=== PATIENT | male | born 1970 | race Hispanic/Latino ===

== ENCOUNTER 2019-05-10 18:32 | Emergency (ER) | END 2019-05-10 19:40 | disposition home or self-care (01) | LOC: ERS 18:32 | DX: J06.9 Acute upper respiratory infection, unspecified (principal); I10 Essential (primary) hypertension; E78.00 Pure hypercholesterolemia, unspecified; F17.210 Nicotine dependence, cigarettes, uncomplicated; Z79.899 Other long term (current) drug therapy | CPT/HCPCS: 87804; 99283 ==

== ENCOUNTER 2019-05-27 09:59 | Emergency (ER) | payer SELFPAY ==
[2019-05-27] MEDS ORDERED: Acetaminophen 500 MG TAB ONE (10:33)
[2019-05-27] MEDS ORDERED: Ibuprofen 800 MG TAB ONE (10:33)
--- NOTE | 2019-05-27 11:42 | RAD ---
EXAM: Chest 2 views: HISTORY: Flulike symptoms with cough COMPARISON: None. FINDINGS: There is a normal-sized cardiomediastinal silhouette. There is no evidence of consolidation, mass, or pleural effusion. The bones are unremarkable. IMPRESSION: No evidence of acute cardiopulmonary disease
[2019-05-27] MEDS ORDERED: Dexamethasone 4 mg/ml Vial ONE (12:11)
== END 2019-05-27 12:15 | disposition home or self-care (01) ==
LOC: ERS 09:59
DX: J20.9 Acute bronchitis, unspecified (principal); H66.92 Otitis media, unspecified, left ear; I10 Essential (primary) hypertension; E78.00 Pure hypercholesterolemia, unspecified; F17.210 Nicotine dependence, cigarettes, uncomplicated; Z79.899 Other long term (current) drug therapy
CPT/HCPCS: 71046; 87804; J1100

== ENCOUNTER 2020-05-03 18:19 | Emergency (ER) | payer OTHER, SELFPAY ==
[2020-05-03] MEDS ORDERED: Acetaminophen 500 MG TAB ONE (19:35)
[2020-05-03] MEDS ORDERED: Ibuprofen 200 MG TAB ONE (19:35)
[2020-05-03] MEDS ORDERED: Dexamethasone 10 MG/ML VIAL ONE (19:36)
--- NOTE | 2020-05-03 20:04 | RAD ---
EXAM: CHEST ONE VIEW: 05/03/20 HISTORY: Swelling to throat on right side with radiation to right ear. COMPARISON: 05/27/19. FINDINGS: The heart size is normal. The lungs are clear. No confluent pneumonia, overt edema, or pleural effusi on. IMPRESSION: No significant acute intrathoracic disease. POS: [facility]
[2020-05-04 02:33] LABS: SARS-CoV-2 MS2 Positive; SARS-CoV-2 N Gene Negative; SARS-CoV-2 S Gene Negative; SARS-CoV-2 by NAA Not Detected (NotDetected); SARS-CoV-2 orf1ab Negative
== END 2020-05-03 21:40 | disposition home or self-care (01) ==
LOC: ERS 18:19
DX: J02.9 Acute pharyngitis, unspecified (principal); Z20.828 Contact with and (suspected) exposure to other viral communicable diseases; I10 Essential (primary) hypertension; E78.00 Pure hypercholesterolemia, unspecified; F17.210 Nicotine dependence, cigarettes, uncomplicated
CPT/HCPCS: 71045; 87081; 87430; 87635; 93005; 96372; J1100; U0003

== ENCOUNTER 2020-08-14 08:09 | Emergency (ER) | payer OTHER, SELFPAY | END 2020-08-14 08:57 | disposition home or self-care (01) | LOC: ERS 08:09 | DX: J36 Peritonsillar abscess (principal) | CPT/HCPCS: 99282 ==

== ENCOUNTER 2023-10-19 11:11 | Emergency (ER) | payer SELFPAY, OTHER ==
[2023-10-19] MEDS ORDERED: Dexamethasone 10 MG/ML VIAL ONE (13:13)
[2023-10-19] MEDS ORDERED: Ibuprofen 200 MG TAB ONE (13:13)
== END 2023-10-19 14:15 | disposition home or self-care (01) ==
LOC: ERS 11:11
DX: J02.9 Acute pharyngitis, unspecified (principal)
CPT/HCPCS: 71046; 87081; 87430; J1100